=== PATIENT | male | born 1995 | race American Indian/Alaskan Native ===

== ENCOUNTER 2021-05-12 13:49 | Emergency (ER) | payer SELFPAY | END 2021-05-12 14:26 | LOC: ED 13:49 | DX: F29 Unspecified psychosis not due to a substance or known physiological condition (principal); Z53.21 Procedure and treatment not carried out due to patient leaving prior to being seen by health care provider ==

== ENCOUNTER 2021-05-13 11:02 | Emergency (ER) | payer MEDICARE ==
[2021-05-13 15:30] LABS: Basophils % (Auto) 0.4 % (0.0-1.8); Eosinophils # (Auto) 0.1 K/mm3 (0.0-0.4); Hemoglobin 15.4 gm/dl (11.8-15.2); Lymphocytes # (Auto) 1.3 K/mm3 (1.2-5.4); Lymphocytes % (Auto) 17.1 % (13.4-35.0); Mean Corpuscular HGB Conc 33 % (32-34); Mean Corpuscular Volume 80 fl (84-94); Monocytes % (Auto) 12.9 % (0.0-7.3); Platelet Count 147 K/mm3 (140-440); Red Blood Count 5.91 M/mm3 (3.65-5.03)
[2021-05-13 15:53] LABS: Alanine Aminotransferase 20 units/L (7-56); Albumin 4.9 g/dL (3.9-5); BUN/Creatinine Ratio 23; Blood Urea Nitrogen 21 mg/dL (9-20); Calcium 10.2 mg/dL (8.4-10.2); Hemolysis Index 22
[2021-05-14 00:28] LABS: Bilirubin,Urine NEG (Negative); Blood,Urine NEG (Negative); Color,Urine Yellow (Yellow); Mucus,Urine 1+ /HPF; WBC,Urine < 1.0 /HPF (0.0-6.0)
[2021-05-14 00:37] LABS: Amphetamine Screen,Urine PRESUMPTIVE NEGATIVE; Benzodiazepines Screen,Urine PRESUMPTIVE NEGATIVE; Cannabinoid Screen,Urine PRESUMPTIVE NEGATIVE; Cocaine Screen,Urine PRESUMPTIVE NEGATIVE; Methadone Screen,Urine PRESUMPTIVE NEGATIVE; Opiate Screen,Urine PRESUMPTIVE NEGATIVE
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
[2021-05-14 09:11] VITALS: BP 111/81
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
--- NOTE | 2021-05-14 10:35 | Event Note ---
Date: 05/14/21 Patient is 26 years old male with history of schizophrenia and developmental delay. Patient brought to the emergency room for evaluation of aggressive behavior. Patient has been evaluated by our psychiatric team and recommended patient to be discharged and follow-up as an outpatient. Patient is alert. In no acute distress. Patient denied any suicidal homicidal ideation. Patient is medically and psychiatrically stable for discharge.
== END 2021-05-14 13:45 | disposition home or self-care (01) ==
LOC: ED 11:02
DX: F91.1 Conduct disorder, childhood-onset type (principal); Z20.822 Contact with and (suspected) exposure to COVID-19; F31.9 Bipolar disorder, unspecified; F20.9 Schizophrenia, unspecified
CPT/HCPCS: 36415; 80053; 80307; 81001; 85025; 99284; U0003; 80320; G0480